=== PATIENT | female | born 1950 | race Caucasian/White ===

== ENCOUNTER 2024-04-08 22:06 | Inpatient (IN) | payer OTHER, SELFPAY ==
[2024-04-08] VITALS (9 sets, daily range): BP systolic 130–194; BP diastolic 85–116
[2024-04-08 17:12] LABS: % Basophils 0.2 % (0-2); % Eosinophils 0.2 % (0-6); % Immature Granulocytes 0.2 % (0-0.5); % Lymphocytes 17.3 % (20.5-51.1); % Monocytes 5.5 % (1.7-9.3); % Neutrophils 76.6 % (42.2-75.2); Absolute Lymphocytes 1.5 10^3/uL (1.2-3.4); Absolute Monocytes 0.5 10^3/uL (0.1-0.6); Absolute Neutrophils 6.4 10^3/uL (1.4-6.5); Hemoglobin 14.3 g/dL (12.0-16.0); Mean Corp Hgb Conc. 33.3 g/dL (33.0-37.0); Mean Corpuscular Hgb 29.3 pg (27.0-31.0); Mean Corpuscular Volume 88.1 fL (81.0-99.0); Mean Platelet Volume 9.8 fL (7.4-10.4); Nucleated Red Blood Cells % 0 %; Platelet Count 239 10^3/uL (130-400); Red Blood Cell Count 4.88 10^6/uL (4.20-5.40); Red Cell Dist. Width 13.2 % (11.5-14.5); White Blood Cell Count 8.4 10^3/uL (4.8-10.8)
[2024-04-08 17:22] LABS: APTT 24.9 Sec (23.4-35.0)
[2024-04-08 17:25] LABS: ALT (SGPT) 25 U/L (0-35); AST (SGOT) 30 U/L (14-36); Albumin 4.4 g/dl (3.5-5.0); Alkaline Phosphatase 93 U/L (38-126); Blood Urea Nitrogen 13 mg/dl (7-17); Calcium 9.9 mg/dl (8.4-10.2); Carbon Dioxide 27 mmol/L (22-30); Chloride 103 mmol/L (98-107); Glucose 128 mg/dl (70-99); Potassium 4.3 mmol/L (3.5-5.1); Sodium 142 mmol/L (135-145); Total Bilirubin 0.6 mg/dl (0.2-1.3); Total Protein 7.3 g/dl (6.3-8.2); eGFR > 60.00
[2024-04-08 17:41] LABS: NT-proBNP 4410 pg/ml; Troponin I 0.037 ng/ml
--- NOTE | 2024-04-08 17:54 | ED.GENMED ---
Addendum entered and electronically signed by Chaparro Licea, DO 04/08/24 21:21:
73-year-old female with saddle pulmonary embolus, large clot burden with right ventricular strain. PERT alert called. IV heparin ordered. Admit to ICU.
Critical care 30 minutes
Critical care statement: A total of 30 minutes of critical care time was provided for this patient. This includes management of unstable vital signs, evaluation of the patient at bedside, reviewing the patient's pertinent medical records, discussion
with consultants, review of old EKGs and review of pertinent medical records. This time with separate from time utilized to perform the aforementioned documented procedures
Original Note:
History of Present Illness
General
Chief Complaint: Breathing Problem
Source: stone gang sawyer ([id number])
Time Seen by Provider: 04/08/24 17:18
History of Present Illness
History of Present Illness:
Patient is a 73-year-old woman who is primarily Montenegrin-speaking presenting to the emergency department shortness of breath. Patient states that she has been having shortness of breath for the past few weeks however this past week she is been
having constant shortness of breath. She denies any chest pain. No nausea or vomiting. No abdominal pain. No history of smoking. She is from [place] and had a stress test done 3 years ago which was normal. Today the pain started in her left
shoulder blade so daughter brought her in for further evaluation. No hemoptysis leg swelling recent travel or history of DVT.
Phy Exam
Physical Exam
Physical Exam:
GENERAL: in no acute distress
HEENT: normocephalic, extraocular movements intact, moist oral mucosa
NECK: normal inspection
RESPIRATORY: no respiratory distress, clear to auscultation bilaterally
CARDIOVASCULAR: regular rate and rhythm
ABDOMEN/: soft, non-distended, non-tender to palpation, no rebound or guarding
EXTREMITIES: non-tender, no edema/swelling
NEUROLOGIC: awake and alert, moves all extremities
SKIN: warm
Scores
Heart Failure Risk
Heart Failure Risk Score: Not Applicable
Course
Orders/Labs/Results
Orders:
Orders
04/08/24 16:50
Electrocardiogram (*1) Urgent
Reason for Study: Shortness of Breath
EKG- Treatment ONCE
CR Chest - 2 Views Urgent
Comment:
Reason For Exam: SOB
04/08/24 16:58
Complete Blood Count/With Diff Urgent
Comprehensive Metabolic Panel Urgent
NT-proBNP Urgent
PTT Urgent
Troponin I Urgent
04/08/24 17:54
CT Chest Pe Study Urgent
Comment:
Reason For Exam: hypoxia, sob
04/08/24 20:02
COVID-19 Antigen Urgent
Source: Nasal Swab
04/08/24 20:58
Troponin I Routine
Abnormal Lab Results
04/08/24
16:58
Neutrophils % 76.6 H %
(42.2-75.2)
Lymphocytes % 17.3 L %
(20.5-51.1)
Glucose 128 H mg/dl
(70-99)
Troponin I 0.037 H* ng/ml
04/08/24 16:58
04/08/24 16:58
Vital Signs
Initial and Last Documented VS:
Initial Vital Signs
Temp Pulse Resp BP Pulse Ox
98.3 F 96 18 178/116 91
04/08/24 16:45 04/08/24 16:45 04/08/24 16:45 04/08/24 16:45 04/08/24 16:45
Last Documented Vital Signs
Temp Pulse Resp BP Pulse Ox
98.3 F 83 19 158/93 99
04/08/24 16:45 04/08/24 19:15 04/08/24 19:15 04/08/24 19:00 04/08/24 19:15
MDM/Problems Addressed
Differential Diagnosis Includes:
Patient is a 73-year-old woman with history of hypertension, hyperlipidemia, hypothyroidism presenting to the emergency department with exertional shortness of breath that is now constant along with left-sided shoulder pain. Vitals here notable for
87% on room air so she was placed on nasal cannula. Exam does show clear breath sounds bilaterally. Concern for PE versus ACS versus pneumonia. Could be new onset heart failure. Will obtain blood work and CT PE. Chest x-ray obtained prior to my
evaluation does show a large left-sided hiatal hernia which patient states she has been aware of. Could be the beginnings of a right lower lobe pneumonia. EKG per my interpretation with T wave inversions in leads III and F.
*Critical Care Note
Total Time (30-74mins, 75-104mins- exclusive of procedures): Not Applicable
Update Note
Update Note:
Received a critical troponin. No prior to compare to. Normal creatinine. Will obtain delta troponin.
On reevaluation patient resting comfortably. Pending CT PE study at this time. Patient will need admission given hypoxia.
ED Attending Note
-
Portions of this chart may have been created with voice recognition software.� Occasional wrong word or��sound alike� substitutions may have occurred due to the inherent limitations of voice recognition software.
Discharge Plan
Departure
Patient Disposition: Admit
Date of Disposition: 04/08/24
Time of Disposition: 20:07
Presentation/result/management discussed w/ accepting MD/DO: Hospitalist
Discharge Problem:
Hypoxia
Referrals:
PRIVATE,PHYSICIAN [Family Provider] -
Interventions
Interventions:
*Risk Screen - Suicide Last Done: 04/08/24 16:45
*General Assessment Last Done: 04/08/24 16:45
*Neglect/Abuse Screening Last Done: 04/08/24 16:45
*ED COVID-19 Vaccine History Last Done: 04/08/24 17:47
ED- Cardiac Assessment Last Done: 04/08/24 17:48
ED- Pulmonary Assessment Last Done: 04/08/24 17:48
Discharge Date and Time
Print Language: YORUBA
[2024-04-08 21:26] LABS: COVID-19 Antigen Negative (Negative)
--- NOTE | 2024-04-08 21:31 | HPS.HSE ---
Family Physician
-
Family Physician: PHYSICIAN PRIVATE
Chief Complaint
-
Shortness of breath and chest pain
History of Present Illness
This is a 73-year-old Swazi speaking female (vomiting 3) with a past medical history of hypothyroidism and hypertension and hyperlipidemia as well as gout presenting to the emergency department with worsening shortness of breath episode of
chest/bilateral shoulder pain.
According to family members and patient she had been in usual state of health up until about 1 weeks ago when she developed dyspnea on exertion which later progressed to shortness of breath at rest. She denied having any chest pain initially. It
has been no lightheadedness or dizziness. She denies any lower extremity swelling. Today prior to coming to the emergency department she developed bilateral pleuritic shoulder pain. She denies any cough fevers or chills.
Patient himself denies any history of recent travels, immobilization, hospitalization. She denies any prior history of venous thromboembolism. She denies any family history of thromboembolism. She denies any history of GI bleed. She had no
recent falls.
On arrival in the emergency department patient was hypoxic and was placed on supplemental oxygen. She was 90% on 2 L. Blood pressure was stable at 138/93 with a pulse rate in the 80s. She was afebrile. ECG showed normal sinus rhythm at 89 with T
wave inversions in leads III and aVF. Troponin was elevated at 0.03. CBC was unremarkable. BNP was elevated at 4000. Chemistries were also unremarkable. She had a CT PE study which showed significant bilateral PE with a thin linear saddle
component and RV strain.
Medical History
Past Medical History
Past Medical History: Reports GERD, HTN, Hypercholesterolemia and Hypothyroidism
Past Surgical History: Reports None
Social History
Tobacco: Non-smoker
Alcohol: None
Drug: None
Personal:
Living: With Family
Employment: Not Employed
Family History
Family History: Not pertinent
Allergies / Home Medications
Allergies reflects when Allergies were last updated in [facility].
Home Medications with original date entered in [facility]
Allergy/Medication List:
Allergies
Allergy/AdvReac Type Severity Reaction Status Date / Time
No Known Allergies Allergy Unverified 04/08/24 16:45
Home Medications
atorvastatin 10 mg tablet 10 mg PO DAILY 04/08/24
levothyroxine 112 mcg tablet (Synthroid) 112 mcg PO DAILY 04/08/24
losartan 25 mg tablet 25 mg PO BID 04/08/24
metoprolol succinate 50 mg tablet,extended release 24 hr 50 mg PO DAILY 04/08/24
pantoprazole 40 mg tablet,delayed release 40 mg PO DAILY 04/08/24
zolpidem 5 mg tablet 5 mg PO HS 04/08/24
Review of Systems
-
History Source: Patient
Constitutional: Reports No Symptoms
EENT: Reports No Symptoms
Respiratory: Reports Trouble Breathing
Cardiac: Reports Chest Pain
Abdomen/GI: Reports No Symptoms
: Reports No Symptoms
Musculoskeletal: Reports No Symptoms
Skin: Reports No Symptoms
Neurological: Reports No Symptoms
Endocrine: Reports No Symptoms
Hematologic/Lymphatic: Reports No Symptoms
Psych: Reports No Symptoms
Physical Exam
Vital Signs
Vital Signs
Temp Pulse Resp BP Pulse Ox
98.3 F 83 19 158/93 99
04/08/24 16:45 04/08/24 19:15 04/08/24 19:15 04/08/24 19:00 04/08/24 19:15
Physical Exam
General: Well Developed, Well Nourished, No Apparent Distress and Conversant
HEENT: NormoCephalic, Anicteric, Moist mucous membranes, Atraumatic and PERRLA
Respiratory: Clear
Cardiac: S1/S2 and Regular Rhythm
Breast: Deferred by me
GI: Soft, Non Tender, Non Distended and Normal Bowel Sounds
Rectal: Deferred by Provider
Genito-urinary: Deferred by me
Musculoskeletal: No Clubbing, No Cyanosis and No Edema
Skin: Warm
Neuro: AO x 3
Hematologic/Lymphatic: No Lymphadenopathy
Psych: Calm
Laboratory Results
-
04/08/24 16:58
04/08/24 16:58
Laboratory Results
APTT 24.9 Sec (23.4-35.0) 04/08/24 16:58
Total Bilirubin 0.6 mg/dl (0.2-1.3) 04/08/24 16:58
AST 30 U/L (14-36) 04/08/24 16:58
ALT 25 U/L (0-35) 04/08/24 16:58
Alkaline Phosphatase 93 U/L (38-126) 04/08/24 16:58
Troponin I 0.037 ng/ml H* 04/08/24 16:58
Data Reviewed
-
CT Scan: Report Reviewed by me
Medical Tests (Nuc Med, Echo, EKG etc): Image Personally Visualized and interpreted
Lab Data: Labs Reviewed by me
Impression/Plan
-
IMPRESSION:
PLAN:
1. PE - Submassive PE (Trop elevation, RV strain). Hemodynamically stable and stable oxygenation. No evidence that this is provoked. No personal or family h/o VTE. Given significant clot burden had PERT alert. Although large luis burden with
small saddle and RV strain, ICU admission, No indication for CDL therapy given stable hemodynamics and mild hypoxia.
- admit to icu
- heparin gtt for now
- supplemental oxygen and pain control
- IR consultation
- Pulm Critical care consult
- Given no evidence of provoked PE and large clot burden, would need hypercoagulable w/u, hematology consult.
Patient is hemodynamically sable so will continue with outpatient management of hypertension. Continue synthroid and statin
Full Code
[2024-04-08] MEDS: HEPARIN 6200 UNITS IV (21:35)
[2024-04-08] MEDS: HEPARIN 25000 UNITS/250 ML IV (21:36)
[2024-04-08] MEDS: AMBIEN 5 MG PO (22:30)
[2024-04-08] MEDS: TRANDATE 10 MG IV (22:53)
[2024-04-09] VITALS (23 sets, daily range): BP systolic 98–161; BP diastolic 69–95
--- NOTE | 2024-04-09 00:05 | PTCARENOTE ---
pt arrived to ICU via stretcher, Gibraltarian speaking, daughter at bedside, AAOx3, denies pain and SOB, SR on the monitor, 6L NC, +BS, purwick in place, no skin issues, call silva in reach, hep gtt infusion per orders.
--- NOTE | 2024-04-09 04:10 | PTCARENOTE ---
pt increased to 8L midflow due to pulse ox 90% and c/o SOB, pt now 96% and denies SOB, pt resting comfortably in bed, call silva in reach.
[2024-04-09 04:14] LABS: Troponin I 0.031 ng/ml
[2024-04-09 04:27] LABS: APTT > 200.0 Sec (23.4-35.0)
[2024-04-09] MEDS: SYNTHROID PO (04:34)
[2024-04-09 04:48] LABS: Blood Urea Nitrogen 12 mg/dl (7-17); Carbon Dioxide 25 mmol/L (22-30); Chloride 106 mmol/L (98-107); Glucose 109 mg/dl (70-99); Magnesium 2.2 mg/dl (1.6-2.3); Sodium 142 mmol/L (135-145); eGFR > 60.00
--- NOTE | 2024-04-09 08:16 | PTCARENOTE ---
Compete assessment done, Pt awake and oriented, speaks only sl Tanzanian, but can be understood for simple conversation. PT denies any pain/discomfort. HR SR with borderline first degree heart block. Pt received on 8L mid flow, weaned down to 6L nc
now, O2 sat =98%. Lobes clear bilat, pt denies any SOB, or pain at this time. Pt is NPO, no morning meds to be given as per Dr Carson. Pt scheduled to go to IR today. Purewick intact, juan carlos care done. Call silva at pt's side.
--- NOTE | 2024-04-09 08:39 | CON.ONC ---
Impression
Impression
Unprovoked PE
Plan
Plan
Heparin> DoAC such as Eliquis x 6 mo.
As unprovoked might be a candidate for termite control representative prophylactic dosed A/C. PCP can be involved with this decision.
Hypercoag w/u unlikely to be helpful as this represents 1st clot and cannot be done inpatient.
Will sign off. Call again if needed.
Patient History
History of Present Illness
CC: Shortness of breath and chest pain
HPI: 73-year-old Citizen Of [place] female presents to the emergency department with worsening shortness of breath episode of chest/bilateral shoulder pain. According to family, symptoms began about 1 weeks ago when she developed dyspnea on exertion which
later progressed to shortness of breath at rest. She denies any lower extremity swelling. She developed bilateral pleuritic shoulder pain. Patient denies recent travels, immobilization, hospitalization, or prior history of venous thromboembolism.
She denies any family history of thromboembolism. A CT PE study which showed significant bilateral PE with a thin linear saddle component and RV strain. Admitted and started on IV heparin.
Past-Medical/Surgical History
PMH: GERD, HTN, Hypercholesterolemia, gout, and Hypothyroidism
PSH: None
SH
Tobacco: Non-smoker
Alcohol: None
Drug: None
FH NEG VTE
Patient Medication
�Medication �Instructions �Recorded �Confirmed �Last Taken �Type
atorvastatin 10 mg tablet 10 mg PO DAILY 04/08/24 04/08/24 Unknown History
levothyroxine 112 mcg tablet 112 mcg PO DAILY 04/08/24 04/08/24 Unknown History
(Synthroid)
losartan 25 mg tablet 25 mg PO BID 04/08/24 04/08/24 Unknown History
metoprolol succinate 50 mg 50 mg PO DAILY 04/08/24 04/08/24 Unknown History
tablet,extended release 24 hr
pantoprazole 40 mg tablet,delayed 40 mg PO DAILY 04/08/24 04/08/24 Unknown History
release
zolpidem 5 mg tablet 5 mg PO HS 04/08/24 04/08/24 Unknown History
Active Medications
Generic Name Dose Route Start Last Admin
Trade Name Freq PRN Reason Stop Dose Admin
Acetaminophen 650 mg 04/08/24 23:22
Acetaminophen 325 Mg Tablet PO 05/06/24 23:21
Q4HPRN PRN
mild pain/temp > 100.4 F
Atorvastatin Calcium 10 mg 04/09/24 08:00
Atorvastatin (Lipitor) 10 Mg Tablet PO 05/07/24 07:59
DAILY AMAYA
Heparin Sodium 6,200 units 04/08/24 21:24
Heparin 80 Units/Kg Rebolus-Do Not Discard IV 05/06/24 21:23
PRN PRN
PTT < OR = 64 seconds
Heparin Sodium 3,100 units 04/08/24 21:25
Heparin 40 Units/Kg Rebolus-Do Not Discard IV 05/06/24 21:24
PRN PRN
PTT = 64.1 to 72.9 seconds
Hydromorphone HCl 0.5 mg 04/08/24 22:17
Hydromorphone 0.5 Mg/0.5 Ml Syringe IV 04/22/24 22:16
Q4HPRN PRN
severe pain
Heparin Sodium 25,000 units in 250 mls @ 0 mls/hr 04/08/24 21:15 04/08/24 21:36
Heparin 46629 Units/250 Ml IV 250 mls
PER PROTOCOL AMAYA Administration
Protocol
Per Protocol
Levothyroxine Sodium 112 mcg 04/09/24 06:00 04/09/24 04:34
Levothyroxine 112 Mcg Tablet PO 05/07/24 05:59 Not Given
DAILY @ 0600 AMAYA
Losartan Potassium 25 mg 04/09/24 08:00
Losartan 25 Mg Tablet PO 05/07/24 07:59
BID AMAYA
Metoprolol Succinate 50 mg 04/09/24 08:00
Metoprolol 50 Mg Extended Release Tablet PO 05/07/24 07:59
DAILY AMAYA
Pantoprazole Sodium 40 mg 04/09/24 08:00
Pantoprazole 40 Mg Delayed Release Tablet PO 05/07/24 07:59
DAILY AMAYA
Sodium Chloride 0 flush 04/08/24 22:00
Sodium Chloride 0.9% (Flush) Syringe IV 05/06/24 21:59
PER PROTOCOL AMAYA
Zolpidem Tartrate 5 mg 04/08/24 22:00 04/08/24 22:30
Zolpidem Tartrate 5 Mg Tablet PO 05/06/24 21:59 5 mg
HS AMAYA Administration
Physical Exam
-
General: Well Developed, Well Nourished and No Apparent Distress
HEENT: Negative Jaundice
Cardiology: S1 and S2
Pulmonary: Clear
GI: Soft
Musculoskeletal: No Clubbing, No Cyanosis and No Edema
Extremities: No C/C/E
Neurology: Non Focal
Labs
Lab Results
WBC 8.4 10^3/uL (4.8-10.8) 04/08/24 16:58
RBC 4.88 10^6/uL (4.20-5.40) 04/08/24 16:58
Hgb 14.3 g/dL (12.0-16.0) 04/08/24 16:58
Hct 43.0 % (37.0-47.0) 04/08/24 16:58
MCV 88.1 fL (81.0-99.0) 04/08/24 16:58
MCH 29.3 pg (27.0-31.0) 04/08/24 16:58
MCHC 33.3 g/dL (33.0-37.0) 04/08/24 16:58
RDW 13.2 % (11.5-14.5) 04/08/24 16:58
Plt Count 239 10^3/uL (130-400) 04/08/24 16:58
MPV 9.8 fL (7.4-10.4) 04/08/24 16:58
Abs Immat Gran (auto) 0.0 10^3/uL (0-0.05) 04/08/24 16:58
Absolute Neuts (auto) 6.4 10^3/uL (1.4-6.5) 04/08/24 16:58
Absolute Lymphs (auto) 1.5 10^3/uL (1.2-3.4) 04/08/24 16:58
Absolute Monos (auto) 0.5 10^3/uL (0.1-0.6) 04/08/24 16:58
Absolute Eos (auto) 0.0 10^3/uL (0-0.7) 04/08/24 16:58
Absolute Basos (auto) 0.0 10^3/uL (0-0.2) 04/08/24 16:58
Immature Gran % 0.2 % (0-0.5) 04/08/24 16:58
Neutrophils % 76.6 % (42.2-75.2) H 04/08/24 16:58
Lymphocytes % 17.3 % (20.5-51.1) L 04/08/24 16:58
Monocytes % 5.5 % (1.7-9.3) 04/08/24 16:58
Eosinophils % 0.2 % (0-6) 04/08/24 16:58
Basophils % 0.2 % (0-2) 04/08/24 16:58
Creatinine 0.6 mg/dL (0.6-1.0) 04/09/24 03:29
Vital Signs
Vital Signs
Temp Pulse Resp BP Pulse Ox
98 F 72 15 142/78 99
04/09/24 04:30 04/09/24 07:45 04/09/24 07:45 04/09/24 07:00 04/09/24 08:15
--- NOTE | 2024-04-09 08:40 | W.PN.HOSP.TC ---
Today's Communication/Plan
-
IV Heparin gtt
Eval for catheter directed thrombolysis
Assessment / Plan
Assessment / Plan
This is a 73-year-old [place] Citizen speaking female (vomiting 3) with a past medical history of hypothyroidism and hypertension and hyperlipidemia as well as gout presenting to the emergency department with worsening shortness of breath episode of
chest/bilateral shoulder pain with CTA showing PE.
CTA
IMPRESSION:
Positive for significant pulmonary embolism. Large clot burden in the peripheral right pulmonary artery extending into the right lower lobe, right middle lobe, and right upper lobe pulmonary arteries. Within linear saddle component traversing the
right and left pulmonary artery bifurcation. On the left, mild clot burden in the left upper lobe anterior and posterior proximal segmental vessels.
Findings consistent with right ventricular strain.
1. PE - Submassive PE (Trop elevation, RV strain).
- Hemodynamically stable and stable oxygenation.
- Unprovoked
- Given significant clot burden had PERT alert.
- NPO for IR procedure evaluation this AM
- heparin gtt for now
- supplemental oxygen and pain control
- Pulm Critical care consult appreciated
Essential HTN
-CORPORATE REAL ESTATE SPECIALIST Metop, Losartan
Hypothyroidism
-CORPORATE REAL ESTATE SPECIALIST Synthroid
Full Code
51 minutes spent on patient care
Anticipated Discharge: > 48 hours
Subjective/Interval History
-
Date of Service: April 09, 2024
no chest pain
appears comfortable
asking about procedure
Objective Data
-
Labs:
Laboratory Results
04/09/24 04/09/24
03:29 10:30
APTT > 200.0 H* Pending
Sodium 142
Potassium 4.0
Chloride 106
Carbon Dioxide 25
BUN 12
Creatinine 0.6
Glucose 109 H
Calcium 9.0
Vital Signs:
Vital Signs
Temp Pulse Resp BP Pulse Ox
98 F 72 15 142/78 99
04/09/24 04:30 04/09/24 07:45 04/09/24 07:45 04/09/24 07:00 04/09/24 08:15
I&O
04/08/24 04/09/24 04/10/24
06:59 06:59 06:59
Intake Total
Balance
Review of Systems
-
History Source: Patient
All other systems: Reviewed and negative
Physical Exam
-
General: No Apparent Distress
HEENT: PERRLA
Respiratory: Clear to Auscultation; Negative Wheezes
Cardiac: Regular Rhythm and S1/S2
GI: Soft and Nontender
Musculoskeletal: No Edema
Skin: Warm and Dry; Negative Rash
Neuro: AO x 3
Psych: Calm
Data Reviewed
-
Diagnostic Radiology: Report Reviewed by me
Labs: Labs Reviewed by me
[2024-04-09] MEDS: LIPITOR 10 MG PO (09:57)
[2024-04-09] MEDS: COZAAR 25 MG PO ×2 (09:57→20:08)
[2024-04-09] MEDS: TOPROL XL 50 MG PO (09:58)
[2024-04-09] MEDS: PROTONIX 40 MG PO (09:58)
--- NOTE | 2024-04-09 09:59 | CON.INTV ---
Addendum entered and electronically signed by Carole Carson MD 04/09/24 11:57:
Patient seen and examined independently by myself and with the resident
History obtained from the daughter at the bedside, reviewing ER records. Patient is Kyrgyz-speaking. Daughter acted as child development instructor
Patient has had increased shortness of breath over the past 10 days. Prior to that was without symptoms. Apparently does drive back and forth to [facility] couple times over the center as she lives in [facility]. No significant travel.
Noted increased shortness of breath, bilateral shoulder pain which was progressive. He was found to be hypoxic at time of evaluation in the ED. CT imaging confirmed bilateral PE, extensive right-sided clot burden, RV strain. Patient was started
on heparin therapy in the ED, PERT alert was initiated. Immediate review of CT imaging by myself on 04/08 was completed. Primary team was recommended to continue with heparin therapy with close monitoring in ICU for indication for lytic therapy.
Overnight, oxygen requirement worsened, requiring up to 8 L mid flow. This morning, patient is more comfortable, denies shortness of breath, chest pain, pleurisy, leg pain.
Patient is up-to-date with mammogram, colonoscopy
Family history, social history, review of systems as below. Patient denies any allergies
Patient was born in [facility] and has been living in [place] for 20 years
Physical exam unremarkable with clear lungs, no murmurs, abdominal exam benign, no leg swelling, no calf tenderness
Data reviewed
A/P
Moving forward, reviewed at length pathophysiology of thromboembolic disease with patient and daughter. Reviewed indications for lytic therapy. Reviewed risks including intracranial bleed. At this time, given subjective improvement in symptoms,
stable hemodynamics, will hold off on lytic therapy. Will await echocardiogram
Discussed with daughter that if develops worsening hemodynamics, hypoxemia, may need to transition to lytic therapy either systemic or catheter directed. Note that decision not as below. Family has not requested heparin therapy. Our recommendation
is to continue heparin therapy and family agrees with this approach with close monitoring
Reviewed at length with primary service, interventional radiology, critical care nursing, pharmacy
TCCT 35 min
Original Note:
Consultation
Consultation Request
Date/Time Consultation Requested: 04/08/24 at 23:22
Date/Time Consultation Performed: 04/08/24 at 23:22
Medical History
-
Chief Complaint: Difficulty breathing
History of Present Illness:
Patient is a 73-year-old Kyrgyz speaking female with a past medical history of hypothyroidism, hypertension, hyperlipidemia, and gout who presented to the emergency department with worsening shortness of breath and an episode of chest with
bilateral shoulder pain. Family states that she was in her normal state of health up until a week ago when she started to develop dyspnea on exertion which slowly progressed to shortness of breath at rest. Prior to coming to the emergency
department she had bilateral pleuritic pain with shoulder pain. Vitals were notable for 87% oxygen saturation on room air so she was placed on a nasal cannula. She was given 2 L of oxygen saturated to 90%. Blood pressure was 178/116 with a pulse
of 96. Exam showed clear breath sounds bilaterally. EKG showed T wave inversions in leads III and aVF. CT PE showed significant bilateral pulmonary embolism with a thin linear saddle component and right ventricular strain. Patient was admitted
and started on IV heparin.
Past Medical History
Past Medical History: GERD, HTN, Hypercholesterolemia, Hypothyroidism and Other (Gout)
Social History
Tobacco: Non-smoker
Alcohol: None
Drug: None
Personal:
Living: With Family
Employment: Not Employed
Family History
Family History: Other (Father had tongue cancer and had a long history of smoking)
Allergies / Home Medications
Allergies
Allergy/AdvReac Type Severity Reaction Status Date / Time
No Known Allergies Allergy Unverified 04/08/24 16:45
Home Medications
�Medication �Instructions �Recorded �Confirmed �Last Taken �Type
atorvastatin 10 mg tablet 10 mg PO DAILY High Cholesterol 04/08/24 04/08/24 Unknown History
levothyroxine 112 mcg tablet 112 mcg PO DAILY Thyroid 04/08/24 04/08/24 Unknown History
(Synthroid)
losartan 25 mg tablet 25 mg PO BID Blood Pressure 04/08/24 04/08/24 Unknown History
metoprolol succinate 50 mg 50 mg PO DAILY Heart 04/08/24 04/08/24 Unknown History
tablet,extended release 24 hr Disease/Condition
pantoprazole 40 mg tablet,delayed 40 mg PO DAILY Gastrointestinal 04/08/24 04/08/24 Unknown History
release Issue
zolpidem 5 mg tablet 5 mg PO HS Sleep 04/08/24 04/08/24 Unknown History
Review of Systems
-
Constitutional: No Symptoms
EENT: No Symptoms
Respiratory: Trouble Breathing
Cardiac: No Symptoms
Abdomen/GI: No Symptoms
: No Symptoms
Musculoskeletal: No Symptoms
Skin: No Symptoms
Neuro: No Symptoms
Endocrine: No Symptoms
Hematologic/Lymphatic: No Symptoms
Vitals / Labs / Diagnostic Testing
Vital Signs
Temp Pulse Resp BP Pulse Ox
98 F 69 15 161/77 97
04/09/24 04:30 04/09/24 09:58 04/09/24 07:45 04/09/24 09:58 04/09/24 09:13
Lab Data
04/09/24 03:29
Laboratory Results
04/08/24 04/09/24
16:58 03:29
APTT 24.9 > 200.0 H*
Diagnostic Testing:
Physical Exam
-
HEENT: Normocephalic, Anicteric and Moist Mucous Membranes
Cardiovascular: S1/S2 and Regular Rhythm
Respiratory: Clear
GI: Soft, Non Distended, Non Tender and Normal Bowel Sounds
Neurology: Awake, Alert and Oriented
Skin: Warm, Dry and Good Color
General: Comfortable and Good Appetite
Assessment
-
Impression:
-Pulmonary embolism
-Essential hypertension
-Hyperlipidemia
-Hypothyroidism
-Gout
-GERD
-Snoring
Assessment/Plan:
-Pulmonary embolism
Patiently currently weaned down to 3 L of oxygen on nasal cannula
Continue to provide support and monitor patient's hemodynamic stability + oxygenation
Currently hemodynamically stable and adequate oxygenation
Lower extremity Doppler to rule out DVT ordered
Troponin elevation with right ventricular strain seen in ED
Had a significant clot burden and had a PERT alert in ED
Will continue heparin gtt and consider possible IR procedure for PE if warranted and desired by patient -patient currently electing to stay with heparin therapy
Continue supplemental oxygen and provide help with pain control
Hematology believes that this patient is a candidate for long-term prophylactic dosed anticoagulant. Hypercoagulability workup unlikely to be helpful as this was the patient's first clot and workup cannot be done inpatient. Hematology signed off.
-Essential hypertension
Resume home medications metoprolol and losartan
-Hyperlipidemia
Resume statin medication
-Hypothyroidism
Resume Synthroid
-Gout
Stable, will continue to monitor
-GERD
Resume pantoprazole
-Snoring
Patient admits to snoring overnight while sleeping on her back and this warrants further investigation into possible obstructive sleep apnea.
Recommend outpatient obstructive sleep apnea assessment.
Data:
-Chest CT conducted on 04/08/2024: Positive for significant pulmonary embolism. Large clot burden in the peripheral right pulmonary artery extending into the right lower lobe, right middle lobe, and right upper lobe pulmonary arteries. Within linear
saddle component traversing the right and left pulmonary artery bifurcation. On the left, mild clot burden in the left upper lobe anterior and posterior proximal segmental vessels. Findings consistent with right ventricular strain.
-Chest x-ray conducted on 04/08/2024: Asymmetric elevation of left diaphragm with adjacent atelectasis. Right lung is clear. No evidence suggest congestive heart failure, pneumothorax, or radiographically demonstrable pleural effusion. Scoliosis.
-Electrocardiogram conducted on 04/29: Showed normal sinus rhythm, nonspecific T wave abnormality, prolonged QT, abnormal ECG
-DVT prophylaxis are SCDs,
-Regular diet
-Full code
[2024-04-09] MEDS: SYNTHROID 112 MCG PO (10:05)
--- NOTE | 2024-04-09 10:11 | CM ---
Reviewed the chart notes and spoke with the patient and her friend at the bedside. The patient speak [place]se, friend was vehicle assembly inspector. The patient resides in an independent apartment with elevator access. The patient uses a cane with ambulation.
No VN or SNF in the past. The patient has an aide for four hours per day six days a week through a waiver program in [place]. The patient's [facility] here [facility]. The patient's discharge plans will depend on the patient's progress. CM
continues to be available to patient/family and is monitoring medical plan for needs at discharge.
Plan: Discharge plans will depend on the patient's progress.
--- NOTE | 2024-04-09 10:19 | PTCARENOTE ---
IR procedure on hold for now, and pt monitored closely following PE status. Pt presently remains on heparin iv at 1100 units/hr. PTT and CBC drawn and sent to lab now. All oral am meds that were on hold, were now given as per Dr Carson. Pt's
daughter in room, and Dr Carson was able to speak to both pt and her daughter, giving an update. Pt cleared to eat ordered diet, breakfast ordered now. O2 presently on 4l nc, o2 sat=94%. Pt denies any SOB at this time.
[2024-04-09 10:39] LABS: Hematocrit 40.2 % (37.0-47.0); Hemoglobin 13.2 g/dL (12.0-16.0); Mean Corp Hgb Conc. 32.8 g/dL (33.0-37.0); Mean Corpuscular Hgb 30.2 pg (27.0-31.0); Mean Platelet Volume 9.6 fL (7.4-10.4); Platelet Count 196 10^3/uL (130-400); Red Blood Cell Count 4.37 10^6/uL (4.20-5.40); Red Cell Dist. Width 13.2 % (11.5-14.5); White Blood Cell Count 6.4 10^3/uL (4.8-10.8)
[2024-04-09 10:47] LABS: APTT 142.5 Sec (23.4-35.0)
--- NOTE | 2024-04-09 11:00 | PTCARENOTE ---
Pt's PTT elevated at 142.5. Heparin drip off for 1 hr, and then to restart at 900 units/hr. Pt ate 100% of her ate breakfast, no c/o of SOB. O2 sat=98% on 4 nc.
[2024-04-09 11:32] LABS: Glycohemoglobin (HgbA1c) 5.7 % (4.0-5.6)
--- NOTE | 2024-04-09 14:05 | CARDSERVDEF ---
Echocardiogram with Definity completed after protocol screening completed. Allergies verified.
Patent IV site: Right accessory 18 G PC (in patient)
IV site flushed with 0.9% NaCl pre and post administration.
Diluted bolus method utilized to enhance visualization of ventricular roberts.
Total volume given: __3__ mL
Patient tolerated all procedures well without complications.
--- NOTE | 2024-04-09 16:40 | PTCARENOTE ---
I/S done with pt and he was able to reach 2500 ml, 10x, and instructed to do q 1hr while awake. Pt does have an occasional nonproductive cough with he inhaled breath. O2 sat=97% on 2l NS. Bilat DP and PT pulses remain present with doppler. Pt [place] at
30 degrees.
[2024-04-09 18:14] LABS: APTT 68.4 Sec (23.4-35.0)
--- NOTE | 2024-04-09 18:18 | PTCARENOTE ---
Nila care done and purewick changed. Pt turned q 2 hrs, remaining on bedrest today. Pt ate all of her dinner. O2 sat=96% on 2l nc, Pt denies any SOB. PTT drawn on 900 units heparin/hr= 68.4. 3,000 heparin iv bolus given and heparin iv ratae
increased 200 units/hr to 1100 units/hr.
[2024-04-09] MEDS: HEPARIN 3100 UNITS IV (18:30)
--- NOTE | 2024-04-09 19:52 | PTCARENOTE ---
on assessment pt resting comfortably in bed, Martiniquais speaking, AAOx3, denies pain and SOB, SR on the monitor, 2L NC, +BS, purwick in place, no skin issues, call silva in reach, hep gtt infusion per orders.
[2024-04-09] MEDS: AMBIEN 5 MG PO (20:08)
[2024-04-09] MEDS: HEPARIN 25000 UNITS/250 ML IV (21:06)
--- NOTE | 2024-04-09 23:39 | PTCARENOTE ---
no changes from prior assessment, pt denies pain and SOB, call silva in reach. hep gtt continues per orders
[2024-04-10] VITALS (24 sets, daily range): BP systolic 86–161; BP diastolic 51–103; PULSE 86–92; O2SAT 93–94
[2024-04-10 00:39] LABS: APTT 86.7 Sec (23.4-35.0)
--- NOTE | 2024-04-10 04:00 | PTCARENOTE ---
no changes from prior assessment, pt denies pain and SOB, call silva in reach
[2024-04-10] MEDS: SYNTHROID 112 MCG PO (05:14)
[2024-04-10 05:36] LABS: Hematocrit 40.3 % (37.0-47.0); Hemoglobin 13.1 g/dL (12.0-16.0); Mean Corp Hgb Conc. 32.5 g/dL (33.0-37.0); Mean Corpuscular Hgb 29.4 pg (27.0-31.0); Mean Corpuscular Volume 90.6 fL (81.0-99.0); Mean Platelet Volume 9.4 fL (7.4-10.4); Platelet Count 197 10^3/uL (130-400); Red Blood Cell Count 4.45 10^6/uL (4.20-5.40); Red Cell Dist. Width 13.2 % (11.5-14.5); White Blood Cell Count 7.5 10^3/uL (4.8-10.8)
[2024-04-10 05:47] LABS: APTT 95.2 Sec (23.4-35.0)
[2024-04-10 06:09] LABS: Blood Urea Nitrogen 14 mg/dl (7-17); Calcium 9.2 mg/dl (8.4-10.2); Carbon Dioxide 22 mmol/L (22-30); Chloride 104 mmol/L (98-107); Glucose 110 mg/dl (70-99); Magnesium 2.1 mg/dl (1.6-2.3); Potassium 4.2 mmol/L (3.5-5.1); Sodium 138 mmol/L (135-145); eGFR > 60.00
[2024-04-10] MEDS: LIPITOR 10 MG PO (07:38)
[2024-04-10] MEDS: COZAAR 25 MG PO (07:38)
[2024-04-10] MEDS: PROTONIX 40 MG PO (07:38)
[2024-04-10] MEDS: TOPROL XL 50 MG PO (07:39)
--- NOTE | 2024-04-10 08:11 | W.PN.HOSP.TC ---
Today's Communication/Plan
-
IV heparin gtt
appreciate Windshield Technician consult
Assessment / Plan
Assessment / Plan
This is a 73-year-old [place] speaking female (vomiting 3) with a past medical history of hypothyroidism and hypertension and hyperlipidemia as well as gout presenting to the emergency department with worsening shortness of breath episode of
chest/bilateral shoulder pain with CTA showing PE.
CTA 04/08/24
IMPRESSION:
Positive for significant pulmonary embolism. Large clot burden in the peripheral right pulmonary artery extending into the right lower lobe, right middle lobe, and right upper lobe pulmonary arteries. Within linear saddle component traversing the
right and left pulmonary artery bifurcation. On the left, mild clot burden in the left upper lobe anterior and posterior proximal segmental vessels.
Findings consistent with right ventricular strain.
TTE 04/09/24
CONCLUSIONS
Underfilled and hyperdynamic left ventricle. Left ventricular ejection
fraction is 70+% by visual assessment. Normal regional wall motion. Diastolic
function indeterminate.
Dilated right ventricle with mildly reduced right ventricular systolic function
(S` = 8.7 cm/s).
Normal atria.
No significant valve abnormalities.
The IVC is of normal size but demonstrates blunted respiratory variation.
Right atrial pressure estimated at 8 mmHg.
PASP estimated at 33 mmHg.
No prior study available for comparison.
1. PE - Submassive PE (Trop elevation, RV strain).
- Hemodynamically stable and stable oxygenation.
- Unprovoked; up to date with mammogram and colonoscopy
- Given significant clot burden had PERT alert.
- Given clinical stability, decision made to avoid CDT
- heparin gtt for now
- supplemental oxygen and pain control
- Pulm Critical care consult appreciated
Essential HTN
-FRENCH CORD BINDER Metop, Losartan
Hypothyroidism
-FRENCH CORD BINDER Synthroid
Full Code
51 minutes spent on patient care
Anticipated Discharge: 24 - 48 hours
Subjective/Interval History
-
Date of Service: April 10, 2024
spoken to with business objects
no chest pain or shortness of breath
Objective Data
-
Labs:
Laboratory Results
04/10/24 04/10/24
00:15 05:22
WBC 7.5
Hgb 13.1
Hct 40.3
Plt Count 197
APTT 86.7 H 95.2 H
Sodium 138
Potassium 4.2
Chloride 104
Carbon Dioxide 22
BUN 14
Creatinine 0.6
Glucose 110 H
Calcium 9.2
Vital Signs:
Vital Signs
Temp Pulse Resp BP Pulse Ox
98.1 F 79 26 155/82 94
04/10/24 07:38 04/10/24 07:33 04/10/24 07:33 04/10/24 07:33 04/10/24 07:55
I&O
04/09/24 04/10/24 04/11/24
06:59 06:59 06:59
Intake Total 1339 / 1830 491 / 491
Output Total 1000 / 1000
Balance 339 / 830 491 / 491
Review of Systems
-
History Source: Patient
All other systems: Reviewed and negative
Physical Exam
-
General: No Apparent Distress
HEENT: PERRLA
Respiratory: Decreased Breath Sounds
Cardiac: Regular Rhythm and S1/S2
GI: Soft and Nontender
Musculoskeletal: No Edema
Skin: Warm and Dry; Negative Rash
Neuro: AO x 3
Psych: Calm
Data Reviewed
-
Diagnostic Radiology: Report Reviewed by me
Labs: Labs Reviewed by me
--- NOTE | 2024-04-10 08:53 | PTCARENOTE ---
RN reviewed patient's medications, heparin gtt, plan of care, and bed rest orders for saddle PE with patient using [email or web address] service car operator Ipad. Patient is laying comfortably in bed, vital signs are within normal limits expect patient still requires 2L
NC. Pt denies SOB, pain/discomfort anywhere. Pt is awaiting the arrival of her daughter, pt did not want RN to help her order breakfast and said daughter will help her
--- NOTE | 2024-04-10 09:45 | W.PN.INTV ---
Addendum entered and electronically signed by Carole Carson MD 04/10/24 11:39:
Updated daughter at length at the bedside
Reviewed importance of follow-up post discharge (pt lives in [facility])
Reviewed limitations of activity, importance of simple ambulation
Reviewed 7% 30-day mortality based on PESI score
All questions answered
Addendum entered and electronically signed by Carole Carson MD 04/10/24 11:21:
Patient seen and examined independently by myself. Patient is feeling much improved. Hemodynamically stable overnight. Denies shortness of breath, chest pain, cough. Echocardiogram results reviewed
Vital stable
97% on 2 L although while sleeping, goes down to 92%
Chest exam is clear, no murmurs
Data reviewed
Doppler with left lower extremity DVT. Echocardiogram with mildly dilated RV, slightly decreased RV function, PA pressure 33. Underfilled LV noted
A/P
Moving forward
Will give fluid bolus. Encourage p.o. intake.
Transition to Lovenox, discontinue heparin
Will consider Eliquis in the next 24 to 48 hours depending on how she is doing
PT/OT, out of bed to chair, ambulate as able
Would recommend outpatient follow-up with pulmonary in 3 months. Hematology evaluation noted, eventual outpatient hypercoagulable workup
Reviewed with critical care nursing, respiratory care, pharmacy, primary service
Okay for transfer out of ICU later today. Pulmonary will continue to follow
Original Note:
Today's Communication / Plan
Recommendations
We will continue to try to wean down patient's nasal cannula flow to room air. Enoxaparin 80 mg/kg twice daily added and will discontinue heparin. 500 cc bolus of normal saline given. Recommend echocardiogram in 3 to 6 months outpatient. PT OT
eval and treat.
Assessment
-
Impression:
-Pulmonary embolism
-Essential hypertension
-Hyperlipidemia
-Hypothyroidism
-Gout
-GERD
-Snoring
Assessment/Plan:
-Pulmonary embolism
Patiently currently weaned down to 2 L of oxygen on nasal cannula
Enoxaparin 80 mg/kg given twice daily and will discontinue heparin
500cc NS bolus given to patient
Continue to provide support and monitor patient's hemodynamic stability + oxygenation
Currently hemodynamically stable and adequate oxygenation
Lower extremity Doppler to rule out DVT ordered
Troponin elevation with right ventricular strain seen in ED
Had a significant clot burden and had a PERT alert in ED
Will continue heparin gtt and consider possible IR procedure for PE if warranted -currently on heparin therapy
Will recommend bridging AC therapy to Eliquis during preparation for discharge
Continue supplemental oxygen and provide help with pain control
Recommend echocardiogram in 3 to 6 months in the outpatient setting
PT OT eval and treat
Hematology believes that this patient is a candidate for long-term prophylactic dosed anticoagulant. Hypercoagulability workup unlikely to be helpful as this was the patient's first clot and workup cannot be done inpatient. Hematology signed off.
-Essential hypertension
Resume home medications metoprolol and losartan
-Hyperlipidemia
Resume statin medication
-Hypothyroidism
Resume Synthroid
-Gout
Stable, will continue to monitor
-GERD
Resume pantoprazole
-Snoring
Patient admits to snoring overnight while sleeping on her back and this warrants further investigation into possible obstructive sleep apnea.
Recommend outpatient obstructive sleep apnea assessment.
Data:
-Peripheral vascular ultrasound conducted on 04/09/2024: No evidence of deep venous thrombosis of the right lower extremity. Thrombus seen in the left gastrocnemius vein in the left calf.
-Chest CT conducted on 04/08/2024: Positive for significant pulmonary embolism. Large clot burden in the peripheral right pulmonary artery extending into the right lower lobe, right middle lobe, and right upper lobe pulmonary arteries. Within linear
saddle component traversing the right and left pulmonary artery bifurcation. On the left, mild clot burden in the left upper lobe anterior and posterior proximal segmental vessels. Findings consistent with right ventricular strain.
-Chest x-ray conducted on 04/08/2024: Asymmetric elevation of left diaphragm with adjacent atelectasis. Right lung is clear. No evidence suggest congestive heart failure, pneumothorax, or radiographically demonstrable pleural effusion. Scoliosis.
-Electrocardiogram conducted on 04/29: Showed normal sinus rhythm, nonspecific T wave abnormality, prolonged QT, abnormal ECG
-DVT prophylaxis is enoxaparin
-Regular diet
-Full code
Subjective Dataa
Subjective Data
Date of Service:
Date of Service: April 10, 2024
Patient resting comfortably in bed. She offers no complaints and says that she is able to breathe better. Nasal cannula does not bother her.
Objective Data
Data Reviewed
Vital Signs / I&O / Oxygen:
Vital Signs
Temp Pulse Resp BP Pulse Ox
98.1 F 79 18 114/103 95
04/10/24 07:38 04/10/24 09:30 04/10/24 09:30 04/10/24 09:00 04/10/24 09:30
Intake and Output
04/09/24 04/10/24 04/11/24
06:59 06:59 06:59
Intake Total 1339 / 1830 513 / 513
Output Total 1000 / 1000
Balance 339 / 830 513 / 513
SaO2 95
Nasal Cannula flow liters per 2
minute
Physical Exam
General: Comfortable
HEENT: Normocephalic and Anicteric
Cardiovascular: Regular Rhythm
Respiratory: Clear and Non-Labored Respirations
GI: Soft, Non Distended, Non Tender and Normal Bowel Sounds
Neurology: Awake, Alert and Oriented
Skin: Warm and Dry
Labs/Micro/Reports
Lab Data
04/10/24 05:22
04/10/24 05:22
Laboratory Results
09/04/24 09/04/24 09/05/24
10:13 17:51 00:15
APTT 142.5 H 68.4 H 86.7 H
04/10/24
05:22
APTT 95.2 H
[2024-04-10] MEDS: LOVENOX 80 MG SC ×2 (10:42→21:44)
[2024-04-10] MEDS: NSS 500 IV (11:29)
--- NOTE | 2024-04-10 12:48 | PN.CDI ---
CDI
- -
CDI:
Physician Documentation Request
Admit Date: 04/08/24 22:06
Dear Doctor Haider,
Please review the following and provide your response in the progress notes.
Clinical Indicators:
Pt admitted with PE - Submassive PE
Documented per progress notes 04/09 & 04/10, ' ...presenting to the emergency department with worsening shortness of breath episode of chest/bilateral shoulder pain.... PE - Submassive PE (Trop elevation, RV strain). ....'
Troponin trended below
04/08/24 04/08/24 04/09/24
16:58 21:04 03:29
Troponin I 0.037 H* 0.040 H* 0.031
Please provide a diagnosis related to the documented troponin elevation:
Non-Ischemic Myocardial Injury
Type 2 AK due to demand ischemia
Other ( please specify)
Use of terms such as suspected, likely, concern for, or probable (associated with a specific diagnosis that is being evaluated, monitored, or treated as if it exists) are acceptable and can be coded in the inpatient setting, when documented at the
time of discharge.
Thank you,
Pat Chandler RN
CDI Specialist
[place] [facility]
Please use your independent medical judgment in providing your response.
--- NOTE | 2024-04-10 13:09 | PN.CDI ---
CDI
- -
CDI:
Physician Documentation Request
Admit Date: 04/08/24 22:06
Dear Doctor Haider,
Please review the following and provide your response in the progress notes.
Clinical Indicators:
Pt admitted with PE - Submassive PE /right RV train
Pt care note 04/09 @ 0410,' pt increased to 8L midflow due to pulse ox 90% and c/o SOB, pt now 96%...'
Pt care note 04/09 @ 0816, ' Pt received on 8L mid flow, weaned down to 6L nc now, O2 sat =98%...'
Pulmonology consult, ' Patient has had increased shortness of breath over the past 10 days. ...was found to be hypoxic at time of evaluation in the ED. ...Overnight, oxygen requirement worsened, requiring up to 8 L mid flow...'
Patients HR 96 on admit and Respirations as high as 30
04/08/24
17:47 04/08/24
22:15
Nasal Cannula flow liters per minute 4 6
04/09/24
00:11 04/09/24
07:57 04/09/24
08:00
Nasal Cannula flow liters per minute 6 8 8
04/09/24
08:15 04/09/24
09:13
Nasal Cannula flow liters per minute 6 4
Please clarify which of the following accurately represents the patient's respiratory status:
Acute Hypoxic Respiratory Failure
Hypoxia- Only
Other
Additional information for Respiratory Failure:
Recognized criteria for Respiratory Failure (Source: [facility] Jun 2013)
ABGs: (1 or more) Symptoms Please indicate type if known
1. p)2 <60 or RA SPO2 <91% on RA 1. Tachypnea, SOB, dyspnea Hypoxic
2. pCO2 50 and pH <7.35 2. Use of accessory muscles Hypercapnic
3. pO2 decrease of pCO2 increase by 3. Pallor or cyanosis Hypoxic and Hypercapnic
10 mmHg from baseline if known 4. Anxiety or restlessness Unable to determine
5. Unable to speak in full sentences
Supplemental O2 of > 40% (5LPM) Intubation is not required
Use of terms such as suspected, likely, concern for, or probable (associated with a specific diagnosis that is being evaluated, monitored, or treated as if it exists) are acceptable and can be coded in the inpatient setting, when documented at the
time of discharge.
Thank you,
Pat Chandler RN
CDI Specialist
[place] [facility]
Please use your independent medical judgment in providing your response.
--- NOTE | 2024-04-10 13:52 | CM ---
CM following re: discharge planning.
Reviewed pt's chart, met with pt.
Pt reports she lives alone in [facility], here visiting her daughter. Pt stated she has 4 hours of caregiver services daily, ambulates independently.
Eliquis murphy checked by calling pt's pharmacy in [facility] [phone] and per pharmacist, Eliquis covered 100%, no co-pay. Free 30 days coupon provided.
Pt stated she will stay with her daughter for a week or two and she will return to her apartment in [facility].
D/C plan: home no needs. Daughter to transport at discharge.
CM will follow with discharge plan updates as hospitalization progresses
--- NOTE | 2024-04-10 15:04 | PTCARENOTE ---
Patient walking around unit hallways with PT/OT with 2L NC. Vital signs remain within normal limits, pt updated on possible plan to transfer to floor if afternoon continues to go well. Heparin gtt d/c per order, lovenox subq started, awning finisher
educated pt and pt daughter on importance of blood thinners and need to follow up with pulm in one month.
--- NOTE | 2024-04-10 20:00 | PTCARENOTE ---
on assessment pt resting comfortably in bed, Bangladeshi speaking but can make needs known, AAOx3, denies pain and SOB, SR on the monitor, 2L NC, +BS, OOB to commode x1 assist, no skin issues, call silva in reach.
[2024-04-10] MEDS: AMBIEN 5 MG PO (21:44)
[2024-04-11] VITALS (20 sets, daily range): BP systolic 98–156; BP diastolic 54–99; PULSE 89; O2SAT 96
--- NOTE | 2024-04-11 04:40 | PTCARENOTE ---
no changes from prior assessment, call silva in reach.
[2024-04-11] MEDS: SYNTHROID 112 MCG PO (04:56)
[2024-04-11 05:13] LABS: Hematocrit 41.5 % (37.0-47.0); Hemoglobin 13.7 g/dL (12.0-16.0); Mean Corpuscular Hgb 29.8 pg (27.0-31.0); Mean Corpuscular Volume 90.2 fL (81.0-99.0); Mean Platelet Volume 9.2 fL (7.4-10.4); Platelet Count 182 10^3/uL (130-400); White Blood Cell Count 5.7 10^3/uL (4.8-10.8)
[2024-04-11 05:34] LABS: Blood Urea Nitrogen 17 mg/dl (7-17); Calcium 9.3 mg/dl (8.4-10.2); Carbon Dioxide 23 mmol/L (22-30); Chloride 104 mmol/L (98-107); Glucose 99 mg/dl (70-99); Magnesium 2.1 mg/dl (1.6-2.3); Potassium 4.1 mmol/L (3.5-5.1); Sodium 141 mmol/L (135-145); eGFR > 60.00
[2024-04-11 05:39] LABS: APTT 44.6 Sec (23.4-35.0)
[2024-04-11] MEDS: LIPITOR 10 MG PO (08:30)
[2024-04-11] MEDS: PROTONIX 40 MG PO (08:30)
[2024-04-11] MEDS: TOPROL XL 50 MG PO (08:31)
[2024-04-11] MEDS: COZAAR 25 MG PO (08:31)
[2024-04-11] MEDS: LOVENOX 80 MG SC ×2 (09:32→21:10)
--- NOTE | 2024-04-11 09:38 | PTCARENOTE ---
RN reviewed current care plan, medications, and lovenox injection education with patient using [employer] fur ironer ipad for assistance. Patient verbalized understanding of all education. Pt used toilet this morning and is out of bed to chair for
breakfast. RN also relayed to patient that she is downgraded to IMU care level status and when a bed is made available on the step down floor, she will transfer out of ICU.
--- NOTE | 2024-04-11 10:53 | W.PN.INTV ---
Addendum entered and electronically signed by Carole Carson MD 04/11/24 12:16:
Patient seen and examined independently by myself. Below reviewed and agreed on
Patient continues to improve. Tolerating physical therapy, ambulating without difficulty
Oxygen requirement has improved
Physical exam unchanged, chest exam is clear, no murmurs
Data reviewed
A/P
Continue with anticoagulation. Lovenox injection started yesterday.
Consider transition to Eliquis in the next 24 hours. This will be deferred to primary service
Continue with PT/OT, ambulation
Reviewed at length limitations with patient and daughter extensively 04/10
Recommend against flying for at least a month
Would recommend pulmonary follow-up in the next 1 to 2 months. Information left in chart
We will sign off. Please call with questions
Original Note:
Today's Communication / Plan
Recommendations
Patient is hemodynamically stable and has reached maximal benefit from her stay at the ICU. We will move forward with downgrading her and discharge planning.
Assessment
-
Impression:
-Pulmonary embolism
-Essential hypertension
-Left lower extremity DVT
-Hyperlipidemia
-Hypothyroidism
-Gout
-GERD
-Snoring
Assessment/Plan:
-Pulmonary embolism
Patiently currently weaned down to 2 L of oxygen on nasal cannula and currently saturating at around 97%
Enoxaparin 80 mg/kg given twice daily and heparin discontinued
500cc NS bolus given to patient
Continue to provide support and monitor patient's hemodynamic stability + oxygenation
Currently hemodynamically stable and adequate oxygenation
Lower extremity Doppler to rule out DVT ordered
Troponin elevation with right ventricular strain seen in ED
Had a significant clot burden and had a PERT alert in ED
Will continue heparin gtt and consider possible IR procedure for PE if warranted -currently on heparin therapy
Will recommend bridging AC therapy to Eliquis during preparation for discharge
Continue supplemental oxygen and provide help with pain control
Recommend echocardiogram in 3 to 6 months in the outpatient setting
PT OT eval and treat
Hematology believes that this patient is a candidate for long-term prophylactic dosed anticoagulant. Hypercoagulability workup unlikely to be helpful as this was the patient's first clot and workup cannot be done inpatient. Hematology signed off.
Recommend outpatient follow-up with pulmonology in 3 months.
7% 30-day mortality based on PESI score
-Essential hypertension
Stable
Resumed home medications metoprolol and losartan
Echocardiogram showed mildly dilated right ventricle with slightly decreased right ventricular function and a pulmonary artery pressure of 33. Underfilled left ventricle noted
-Left lower extremity DVT:
Stable
Lower extremity Doppler showed a left lower extremity DVT.
-Hyperlipidemia
Stable
Resumed statin medication
-Hypothyroidism
Stable
Resumed Synthroid
-Gout
Stable, will continue to monitor
-GERD
Resumed pantoprazole
-Snoring
Patient admitted to snoring overnight while sleeping on her back and this warrants further investigation into possible obstructive sleep apnea.
Recommend outpatient obstructive sleep apnea assessment.
Data:
-Peripheral vascular ultrasound conducted on 04/09/2024: No evidence of deep venous thrombosis of the right lower extremity. Thrombus seen in the left gastrocnemius vein in the left calf.
-Chest CT conducted on 04/08/2024: Positive for significant pulmonary embolism. Large clot burden in the peripheral right pulmonary artery extending into the right lower lobe, right middle lobe, and right upper lobe pulmonary arteries. Within linear
saddle component traversing the right and left pulmonary artery bifurcation. On the left, mild clot burden in the left upper lobe anterior and posterior proximal segmental vessels. Findings consistent with right ventricular strain.
-Chest x-ray conducted on 04/08/2024: Asymmetric elevation of left diaphragm with adjacent atelectasis. Right lung is clear. No evidence suggest congestive heart failure, pneumothorax, or radiographically demonstrable pleural effusion. Scoliosis.
-Electrocardiogram conducted on 04/29: Showed normal sinus rhythm, nonspecific T wave abnormality, prolonged QT, abnormal ECG
-DVT prophylaxis is enoxaparin
-Regular diet
-Full code
Subjective Dataa
Subjective Data
Date of Service:
Date of Service: April 11, 2024
Met with patient at the bedside. Patient feels much better and denies any shortness of breath chest pain or cough. She is in a calm and pleasant mood.
Review of Systems
General: Satisfactory Appetite
Objective Data
Data Reviewed
Vital Signs / I&O / Oxygen:
Vital Signs
Temp Pulse Resp BP Pulse Ox
97.7 F 79 25 127/80 97
04/11/24 08:28 04/11/24 10:45 04/11/24 10:45 04/11/24 10:00 04/11/24 10:45
Intake and Output
04/10/24 04/11/24 04/12/24
06:59 06:59 06:59
Intake Total 1339 / 1830 1594 / 1594 480 / 480
Output Total 1000 / 1000 700 / 700
Balance 339 / 830 894 / 894 480 / 480
SaO2 97
Nasal Cannula flow liters per 2
minute
Physical Exam
General: Comfortable
HEENT: Normocephalic and Anicteric
Cardiovascular: Regular Rhythm
Respiratory: Clear and Non-Labored Respirations
GI: Soft, Non Distended, Non Tender and Normal Bowel Sounds
Neurology: Awake, Alert and Oriented
Skin: Warm and Dry
Labs/Micro/Reports
Lab Data
04/11/24 04:55
04/11/24 04:55
Laboratory Results
04/11/24
04:55
APTT 44.6 H
--- NOTE | 2024-04-11 12:38 | CM ---
Addendum entered by Angelo Lugo 04/11/24 15:02:
According to ambulatory pulse Ox will be performed tomorrow to determine whether or not pt will need home O2. CM to check home O2 requirement.
CM met with pt again and pt stated she will stay with her daughter for at least 3 weeks at the address: [place] [address]. Pt stated after 3 weeks she will return back to her apartment in [facility].
Pt stated she feels weak and she preferred to have VN services while she will be staying at daughter's house. A list of VN vendors provided, pt preferred [facility]. A referral to [facility] made with updated daughter's address.
IMM reviewed, placed on chart, pt has a copy.
D/C plan: Home with [facility] and family support. Daughter to transport at discharge.
CM will follow with discharge plan updates as hospitalization progresses
Original Note:
CM following re: discharge planning.
Reviewed pt's chart, met with pt.
PT and OT evaluations noted: home PT vs no needs recommended. Pt is aware and she stated she will stay with daughter for a couple of weeks and daughter will help.
Pt reports she lives alone in [facility], here visiting her daughter. Pt stated she has 4 hours of caregiver services daily, ambulates independently.
Pt still requires 2 L NC of O2, hope it will wean down.
D/C plan: Home no needs. Daughter to transport at discharge.
CM will follow with discharge plan updates as hospitalization progresses
--- NOTE | 2024-04-11 13:02 | W.PN.HOSP.TC ---
Today's Communication/Plan
-
see plan
Assessment / Plan
Assessment / Plan
This is a 73-year-old Scottish speaking female (vomiting 3) with a past medical history of hypothyroidism and hypertension and hyperlipidemia as well as gout presenting to the emergency department with worsening shortness of breath episode of
chest/bilateral shoulder pain with CTA showing PE.
CTA 04/08/24
IMPRESSION:
Positive for significant pulmonary embolism. Large clot burden in the peripheral right pulmonary artery extending into the right lower lobe, right middle lobe, and right upper lobe pulmonary arteries. Within linear saddle component traversing the
right and left pulmonary artery bifurcation. On the left, mild clot burden in the left upper lobe anterior and posterior proximal segmental vessels.
Findings consistent with right ventricular strain.
TTE 04/09/24
CONCLUSIONS
Underfilled and hyperdynamic left ventricle. Left ventricular ejection
fraction is 70+% by visual assessment. Normal regional wall motion. Diastolic
function indeterminate.
Dilated right ventricle with mildly reduced right ventricular systolic function
(S` = 8.7 cm/s).
Normal atria.
No significant valve abnormalities.
The IVC is of normal size but demonstrates blunted respiratory variation.
Right atrial pressure estimated at 8 mmHg.
PASP estimated at 33 mmHg.
No prior study available for comparison.
1. PE - Submassive PE (Trop elevation, RV strain).
- Hemodynamically stable and stable oxygenation.
- Unprovoked; up to date with mammogram and colonoscopy
- Given significant clot burden had PERT alert.
- Given clinical stability, decision made to avoid CDT
- transitioned to Lovenox
- supplemental oxygen and pain control
- Pulm Critical care consult appreciated
- home O2 testing tomorrow and will DC on Eliquis - updated CM
Essential HTN
-HOUSEKEEPER MANAGER Metop, Losartan
Hypothyroidism
-HOUSEKEEPER MANAGER Synthroid
Full Code
51 minutes spent on patient care
Anticipated Discharge: 24 - 48 hours
Subjective/Interval History
-
Date of Service: April 11, 2024
feeling well
feels better with oxygen on
Objective Data
-
Labs:
Laboratory Results
04/11/24
04:55
WBC 5.7
Hgb 13.7
Hct 41.5
Plt Count 182
APTT 44.6 H
Sodium 141
Potassium 4.1
Chloride 104
Carbon Dioxide 23
BUN 17
Creatinine 0.6
Glucose 99
Calcium 9.3
Vital Signs:
Vital Signs
Temp Pulse Resp BP Pulse Ox
98.0 F 71 26 127/80 97
04/11/24 11:21 04/11/24 12:45 04/11/24 12:45 04/11/24 12:00 04/11/24 12:45
I&O
04/10/24 04/11/24 04/12/24
06:59 06:59 06:59
Intake Total 1339 / 1830 1594 / 1594 480 / 480
Output Total 1000 / 1000 700 / 700
Balance 339 / 830 894 / 894 480 / 480
Review of Systems
-
History Source: Patient
All other systems: Reviewed and negative
Physical Exam
-
General: No Apparent Distress
HEENT: PERRLA
Respiratory: Decreased Breath Sounds
Cardiac: Regular Rhythm and S1/S2
GI: Soft and Nontender
Musculoskeletal: No Edema
Skin: Warm and Dry; Negative Rash
Neuro: AO x 3
Psych: Calm
Data Reviewed
-
Diagnostic Radiology: Report Reviewed by me
Labs: Labs Reviewed by me
--- NOTE | 2024-04-11 14:19 | PTCARENOTE ---
Patient oob to chair for lunch, voiding in bathroom with standby assistance, home O2 test ordered
--- NOTE | 2024-04-11 15:17 | VNURNOTE ---
Home Health Liaison met with patient at bedside to discuss VN nurse/therapy, visits, schedule and homebound status. Patient is agreeable and understands that visits at home will be 2-3 x per week to assess and teach medical management. Watching
for potential home 02. Per Angelo SCHUMACHER, home 02 testing will be repeated tomorrow. Clinicals not sent to DME co. until final determination.
Patient lives in [place] and is staying with daughter Reshma in [place] x 3 weeks. She reports she is current with PCP in [place], Dr Segun Fregoso.
VN brochure provided with contact information. Patient is aware that [facility] will contact them for start of care in 1-2 days after discharge from .
[facility] referral completed in [facility].
--- NOTE | 2024-04-11 16:53 | PTCARENOTE ---
Pt walked with P/T around ICU hallway on 2l NC. Pt now resting, OOB in chair tolerating well. O2 sat=94% on 2l NC, lobes clear, diminished at bases bilat. Complete assessment done and documented. Call silva at pt's side, and is cleared to go to IMU
when a bed is available.
[2024-04-11] MEDS: AMBIEN 5 MG PO (21:10)
--- NOTE | 2024-04-11 21:14 | PTCARENOTE ---
Pt Aox3, Mainly Dominican speaking, communicates appropriately through furniture finisher. NSR on monitor, 2L NC sats 90-94%. denies pain. Stand by assist to bathroom. Pt downgraded moved to room 3353, report given to RN.
--- NOTE | 2024-04-11 21:32 | PTCARENOTE ---
Pt received as transfer from ICU. Speaks Italian but understands simple words. Pt uses her phone to communicate back and forth with staff. AAOx3. Denies pain or discomfort. VSS. Afebrile. SR on CM. POX 94% on 2L NC. Diminished left posterior.
Received HS meds. Fresh water provided. Walks to bathroom by self. Rest of assessment as documented. Oriented to room and surroundings. Call silva remains within reach. Will continue to monitor.
[2024-04-12] VITALS (7 sets, daily range): BP systolic 96–133; BP diastolic 57–78
[2024-04-12] MEDS: SYNTHROID 112 MCG PO (05:28)
[2024-04-12] MEDS: COZAAR 25 MG PO (07:43)
[2024-04-12] MEDS: LIPITOR 10 MG PO (07:44)
[2024-04-12] MEDS: TOPROL XL 50 MG PO (07:44)
[2024-04-12] MEDS: PROTONIX 40 MG PO (07:44)
--- NOTE | 2024-04-12 08:41 | W.PN.HOSP.TC ---
Addendum entered and electronically signed by Mary Anne Maloney MD 04/12/24 09:40:
acute hypoxic resp failure
-required 8L
-now much improved and has some insufficiency
Non-Ischemic Myocardial Injury
-2/2 PE
Original Note:
Today's Communication/Plan
-
anticipate DC today after home O2 testing
Assessment / Plan
Assessment / Plan
This is a 73-year-old Algerian speaking female (vomiting 3) with a past medical history of hypothyroidism and hypertension and hyperlipidemia as well as gout presenting to the emergency department with worsening shortness of breath episode of
chest/bilateral shoulder pain with CTA showing PE.
CTA 04/08/24
IMPRESSION:
Positive for significant pulmonary embolism. Large clot burden in the peripheral right pulmonary artery extending into the right lower lobe, right middle lobe, and right upper lobe pulmonary arteries. Within linear saddle component traversing the
right and left pulmonary artery bifurcation. On the left, mild clot burden in the left upper lobe anterior and posterior proximal segmental vessels.
Findings consistent with right ventricular strain.
TTE 04/09/24
CONCLUSIONS
Underfilled and hyperdynamic left ventricle. Left ventricular ejection
fraction is 70+% by visual assessment. Normal regional wall motion. Diastolic
function indeterminate.
Dilated right ventricle with mildly reduced right ventricular systolic function
(S` = 8.7 cm/s).
Normal atria.
No significant valve abnormalities.
The IVC is of normal size but demonstrates blunted respiratory variation.
Right atrial pressure estimated at 8 mmHg.
PASP estimated at 33 mmHg.
No prior study available for comparison.
1. PE - Submassive PE (Trop elevation, RV strain).
- Hemodynamically stable and stable oxygenation.
- Unprovoked; up to date with mammogram and colonoscopy
- Given significant clot burden had PERT alert.
- Given clinical stability, decision made to avoid CDT
- transitioned to Lovenox --> will now transition to Eliquis
- supplemental oxygen and pain control
- Pulm Critical care consult appreciated
- home O2 testing today - to determine if DC with or without O2
Essential HTN
-ICE PULLER Metop, Losartan
Hypothyroidism
-ICE PULLER Synthroid
Full Code
51 minutes spent on patient care
Anticipated Discharge: Within 24 hours
Subjective/Interval History
-
Date of Service: April 12, 2024
continues to have some shoulder blade pain that comes and goes - similar to what she came in with
Objective Data
-
Vital Signs:
Vital Signs
Temp Pulse Resp BP Pulse Ox
97.5 F 80 18 119/78 96
04/12/24 07:15 04/12/24 07:43 04/12/24 06:15 04/12/24 07:43 04/12/24 06:15
I&O
04/11/24 04/12/24 04/13/24
06:59 06:59 06:59
Intake Total 1594 / 1594 880 / 880
Output Total 700 / 700
Balance 894 / 894 880 / 880
Review of Systems
-
History Source: Patient
All other systems: Reviewed and negative
Physical Exam
-
General: No Apparent Distress
HEENT: PERRLA
Respiratory: Clear to Auscultation; Negative Wheezes
Cardiac: S1/S2
GI: Soft and Nontender
Musculoskeletal: No Edema
Skin: Warm and Dry; Negative Rash
Neuro: AO x 3
Psych: Calm
Data Reviewed
-
Diagnostic Radiology: Report Reviewed by me
Labs: Labs Reviewed by me
--- NOTE | 2024-04-12 09:56 | CM ---
CM reviewed medical records. Plan for possible discharge home. Home Oxygen assessment noted. No oxygen needs at this time. Cm will remain available.
Plan: Home no needs.
--- NOTE | 2024-04-12 10:23 | W.DS.TRANS ---
DC Summary - Vocational Case Manager
-
Discharge Instructions:
Discharge Diagnosis/Procedures pulmonary embolism
Diet Regular
Activity As tolerated
Driving Restrictions As prior to admission
Bathing Restrictions None
Instructions:
Stand-Alone Forms:
Changes to Home Medications: Yes
Discharge Medications:
DC Medications w/original date entered in [employer]
atorvastatin 10 mg tablet 10 mg PO DAILY High Cholesterol 04/08/24
levothyroxine 112 mcg tablet (Synthroid) 112 mcg PO DAILY Thyroid 04/08/24
metoprolol succinate 50 mg tablet,extended release 24 hr 50 mg PO DAILY Heart Disease/Condition 04/08/24
pantoprazole 40 mg tablet,delayed release 40 mg PO DAILY Gastrointestinal Issue 04/08/24
zolpidem 5 mg tablet 5 mg PO HS Sleep 04/08/24
apixaban 5 mg tablet (Eliquis) 5 mg PO Q12 #100 tabs 04/12/24
losartan 25 mg tablet 25 mg PO DAILY Blood Pressure #0 tabs 04/12/24
Home Medication Changes
addition eliquis
losartan daily instead of BID
Pending Results: No
[2024-04-12] MEDS: ELIQUIS 10 MG PO (10:33)
--- NOTE | 2024-04-12 12:27 | PTCARENOTE ---
pt education completed with [facility] Ipad translating radha. Education surrounding D/C, F/U appmts and anticoagulation. Pt expressed understanding, reported her daughter will be picking her up shortly.
--- NOTE | 2024-04-12 14:20 | W.DCSUMMARY ---
Discharge Summary
Discharge Data
Date of Admission: 04/08/24
Date of Discharge: 04/12/24
-
Pending Results: No
Hospital Course
Discharging Physician : Dr. Mary Anne Maloney
Disposition : Home
Principal Discharge diagnosis : Submassive pulmonary embolism
Hospital Course :
Ms. Nayeli Harper is a 73 yo woman with hx hypothyroidism, HTN, HLD, Gout presents to the ER with shortness of breath and chest/bilateral shoulder pain.
On arrival in the emergency department patient was hypoxic and was placed on supplemental oxygen. She was 90% on 2 L. Blood pressure was stable at 138/93 with a pulse rate in the 80s. She was afebrile. ECG showed normal sinus rhythm at 89 with T
wave inversions in leads III and aVF. Troponin was elevated at 0.03. CBC was unremarkable. BNP was elevated at 4000. Chemistries were also unremarkable. She had a CT PE study which showed significant bilateral PE with a thin linear saddle
component and RV strain.
She was admitted to the ICU, evaluated for CDT but deemed not a candidate given hemodynamic stability and stable respiratory status on low supplemental O2, risks outweighed benefits. She was maintained on a IV heparin gtt then transitioned to
Lovenox then Eliquis. Ambulatory pulse ox shows no need for home oxygen. The will follow up closely with her physicians in [place].
Time spent on discharge was 35 minutes.
Important imaging findings :
CTA 04/08/24
IMPRESSION:
Positive for significant pulmonary embolism. Large clot burden in the peripheral right pulmonary artery extending into the right lower lobe, right middle lobe, and right upper lobe pulmonary arteries. Within linear saddle component traversing the
right and left pulmonary artery bifurcation. On the left, mild clot burden in the left upper lobe anterior and posterior proximal segmental vessels.
Findings consistent with right ventricular strain.
TTE 04/09/24
CONCLUSIONS
Underfilled and hyperdynamic left ventricle. Left ventricular ejection
fraction is 70+% by visual assessment. Normal regional wall motion. Diastolic
function indeterminate.
Dilated right ventricle with mildly reduced right ventricular systolic function
(S` = 8.7 cm/s).
Normal atria.
No significant valve abnormalities.
The IVC is of normal size but demonstrates blunted respiratory variation.
Right atrial pressure estimated at 8 mmHg.
PASP estimated at 33 mmHg.
No prior study available for comparison.
Procedure findings :
Discharge Plan
-
Patient Disposition: Home (Routine Discharge)
Discharge Diagnosis/Procedures: pulmonary embolism
Diet: Regular
Activity: As tolerated
Driving Restrictions: As prior to admission
Bathing Restrictions: None
Activity Restrictions/Additional Instructions:
Please follow up with your Primary Care Doctor within the next week
Referrals:
Carole Carson MD [Active] - (1-2 mo pulmonary f/u)
PRIVATE,PHYSICIAN [Family Provider] - in less than 1 week
Additional Discharge Medication Instructions: Eliquis:
Take 2 tabs (10mg) twice a day through 04/18 (a total of 7 days). Take 1 tab (5mg) twice a day starting morning 04/19.
Take Losartan once a day instead of twice a day for now. Monitor your blood pressure at home, this may be increased to twice a day at your next follow up appointment.
Prescriptions:
New
Eliquis 5 mg Tablet
5 mg PO Q12 Qty: 100 0RF
Rx Instructions:
Take 2 tabs (10mg) twice a day through 04/18. Take 1 tab (5mg) twice a day starting morning 04/19
Continued
atorvastatin 10 mg tablet
10 mg PO DAILY
metoprolol succinate 50 mg tablet extended release 24 hr
50 mg PO DAILY
pantoprazole 40 mg tablet,delayed release (DR/EC)
40 mg PO DAILY
zolpidem 5 mg tablet
5 mg PO HS
Patient Comments:
04/08/2024: last filled 12/06/23, 30 tabs for 30 days from [facility]
levothyroxine [Synthroid] 112 mcg tablet
112 mcg PO DAILY
Changed
losartan 25 mg tablet
25 mg PO DAILY Qty: 0 0RF
Discharge Orders:
Discharge Patient (As Directed); Ordered 04/12/24
Ordered By: Mary Anne Maloney
Discharge Date and Time
Print Language: [id number]
== END 2024-04-12 13:45 | disposition home or self-care (01) | DRG 175 ==
LOC: IMU 22:06
PROVIDERS: Emergency Medicine; Nurse Practitioner Primary Care; Student in an Organized Health Care Education/Training Program; ADMITTING PHYSICIAN Internal Medicine; ATTENDING PHYSICIAN Student in an Organized Health Care Education/Training Program; CONSULT PHYSICIAN Internal Medicine Critical Care Medicine; EMERGENCY PHYSICIAN Emergency Medicine; OTHER PHYSICIAN Internal Medicine Hematology & Oncology
DX: I26.92 Saddle embolus of pulmonary artery without acute cor pulmonale (principal); J96.01 Acute respiratory failure with hypoxia; I5A Non-ischemic myocardial injury (non-traumatic); J98.11 Atelectasis; E78.00 Pure hypercholesterolemia, unspecified; E03.9 Hypothyroidism, unspecified; I10 Essential (primary) hypertension; K21.9 Gastro-esophageal reflux disease without esophagitis; M10.9 Gout, unspecified; I82.462 Acute embolism and thrombosis of left calf muscular vein; G47.33 Obstructive sleep apnea (adult) (pediatric); Z79.899 Other long term (current) drug therapy; Z79.890 Hormone replacement therapy; Z11.52 Encounter for screening for COVID-19
CPT/HCPCS: 71046; 71275; 80048; 80053; 83036; 83735; 83880; 84484; 85025; 85027; 85730; 86850; 86900; 86901; 87811; 93005; 93306; 93970; 96365; 96366; 97163; 97167; 97530; 99291; Q9950; Q9967